=== PATIENT | male | born 1970 | race Caucasian/White ===

== ENCOUNTER 2021-05-21 00:20 | Inpatient (IN) | payer MEDICAID, OTHER ==
[~2021-05-21] VITALS: Ht 180.3 cm; Wt 109.1 kg
[~2021-05-21 00:20] MED LIST: CLIN150C8 PO; HYDR-4383 PO
[2021-05-21] MEDS ORDERED: acetaminophen 325mg tablet PO STA (01:44)
[2021-05-21 02:13] LABS: BASOPHILS # (AUTO) 0.1 X10'3 (0-0.2); BASOPHILS % (AUTO) 0.3 % (0-1); EOSINOPHILS # (AUTO) 0.1 X10'3 (0-0.9); EOSINOPHILS % (AUTO) 0.6 % (0-6); HEMATOCRIT 39.5 % (42.0-52.0); HEMOGLOBIN 12.9 g/dl (14.0-17.9); LYMPHOCYTES # (AUTO) 2.2 X10'3 (1.1-4.8); MEAN CORPUSCULAR HEMOGLOBIN 29.3 PG (27.0-31.0); MEAN CORPUSCULAR HGB CONC 32.8 g/dL (33.0-36.5); MEAN CORPUSCULAR VOLUME 89.5 FL (78-98); MONOCYTES # (AUTO) 1.7 X10'3 (0-0.9); MONOCYTES % (AUTO) 6.7 % (2-12); NEUTROPHILS # (AUTO) 20.6 X10'3 (1.8-7.7); NEUTROPHILS % (AUTO) 83.4 % (42-75); PLATELET COUNT 361 X10'3 (140-440); RED BLOOD COUNT 4.42 X10'6 (4.70-6.10); RED CELL DISTRIBUTION WIDTH 15.6 % (11.5-14.5); WHITE BLOOD COUNT 24.8 X10'3 (4.5-11.0)
[2021-05-21] MEDS ORDERED: VANCOMYCIN 1,500MG inj. 1,500 MG in normal saline 500ml IV soln 300 ML IV ONE (02:34)
[2021-05-21] MEDS ORDERED: CefTRIAXone/D5W-Rocephin 1gm 50 ML IV ONE (02:35)
[2021-05-21] MEDS ORDERED: NO HOME MEDS (02:42)
[2021-05-21 02:59] LABS: ALANINE AMINOTRANSFERASE 29 U/L (12-78); ALBUMIN 3.1 G/DL (3.4-5.0); ALBUMIN/GLOBULIN RATIO 0.8 (1.1-1.5); ALKALINE PHOSPHATASE 75 IU/L (46-116); ANION GAP 7 (8-16); ASPARTATE AMINO TRANSFERASE 19 U/L (10-37); BILIRUBIN,TOTAL 0.8 MG/DL (0.1-1.0); BLOOD UREA NITROGEN 16 MG/DL (7-18); BUN/CREATININE RATIO 9.5 (5.4-32.0); CALCIUM 8.3 MG/DL (8.5-10.1); CHLORIDE 103 MMOL/L (99-107); CREATININE 1.69 MG/DL (0.60-1.10); GLUCOSE 139 MG/DL (70-104); POTASSIUM 3.8 MMOL/L (3.5-5.1); SODIUM 140 MMOL/L (135-145); TOTAL CARBON DIOXIDE 30.1 MMOL/L (24-32); TOTAL PROTEIN 6.9 G/DL (6.4-8.2); eGFR 43 ML/MIN
[2021-05-21] MEDS ORDERED: acetaminophen 325mg tablet PO PRN (03:15)
[2021-05-21] MEDS ORDERED: magnesium hydroxide 30ml (MOM) UD suspension PO PRN (03:15)
[2021-05-21] MEDS ORDERED: ondansetron/PF 4mg/2ml inj IV PRN (03:15)
[2021-05-21] MEDS ORDERED: mag hydrox/Alum hydrox/simeth 30ml oral suspension PO PRN (03:15)
[2021-05-21] MEDS ORDERED: insulin Lispro (HumaLOG) vial - multi-dose SQ SCH (03:20)
[2021-05-21] MEDS ORDERED: dextrose ORAL solution 15 GM/59 ML bottle PO PRN ×2 (03:20)
[2021-05-21] MEDS ORDERED: dextrose 50%-water 50ml dispensing syringe IV PRN ×2 (03:20)
[2021-05-21] MEDS ORDERED: MESSAGE TO PHARMACY PO ONE (03:20)
[2021-05-21] MEDS ORDERED: glucagon, human recombinant 1mg kit SUBCUT PRN (03:20)
[2021-05-21 03:24] LABS: PLATELET ESTIMATE NORMAL; TOTAL CELLS COUNTED 100
[2021-05-21 03:45] VITALS: BP 136/69
[2021-05-21 06:00] VITALS: BP 136/69
--- NOTE | 2021-05-21 06:00 | NUR ---
Patient in room [facility]TH[facility] 4017. I have received report from Sandra ARIAS and had the opportunity to ask questions and assume patient care.
--- NOTE | 2021-05-21 06:19 | NUR ---
RC'D VERBAL REPORT FROM "CAP" IN ED AND ASSUMED CARE OF PATIENT AT 0345. RLE CELLULITIS DRAINING SEROUS DRNG. PICTURES TAKEN AND IN THE CHART. REPORT TO EARLY SHIFT JUANA HANEY
[2021-05-21] MEDS: heparin, porcine 5000 units/ml vial SQ SCH ×2 (08:00→20:01)
[2021-05-21] MEDS: normal saline 1000ml 1,000 ML IV SCH (08:14)
[2021-05-21] MEDS: piperacillin/tazo 3.375gm/50ml 50 ML IV SCH ×3 (08:16→23:17)
[2021-05-21 11:00] VITALS: BP 106/64
[2021-05-21] MEDS: vancomycin/NS 1 GM ADD-VANTAGE 250 ML IV SCH (13:02)
[2021-05-21] MEDS ORDERED: hydrALAZINE 20mg/ml inj. IV PRN (15:15)
[2021-05-21] MEDS: HYDROcodone/acetaminophen 5mg/325mg tablet PO PRN (16:10)
[2021-05-21 17:00] VITALS: BP 132/68
--- NOTE | 2021-05-21 18:31 | NUR ---
Problems reprioritized. Patient report given, questions answered & plan of care reviewed with Loreto ARIAS.
--- NOTE | 2021-05-21 18:35 | NUR ---
Patient in room [facility]TH[facility] 4017. I have received report from kenneth Johnson and had the opportunity to ask questions and assume patient care.
[2021-05-21] MEDS: lactobacillus rhamnosus 10,000 MMU CELLS/CAPSULE PO SCH (20:00)
[2021-05-21 22:00] VITALS: BP 131/76
[2021-05-22] MEDS: vancomycin/NS 1 GM ADD-VANTAGE 250 ML IV SCH ×3 (03:35→21:06)
[2021-05-22] MEDS: HYDROcodone/acetaminophen 5mg/325mg tablet PO PRN ×3 (05:22→21:06)
[2021-05-22 06:00] VITALS: BP 138/75
--- NOTE | 2021-05-22 06:41 | NUR ---
Problems reprioritized. Patient report given, questions answered & plan of care reviewed with JUANA COLLINS.
--- NOTE | 2021-05-22 06:45 | NUR ---
Patient in room [facility]TH[facility] 4017. I have received report from JUANA RENEE and had the opportunity to ask questions and assume patient care.
[2021-05-22 06:48] LABS: BASOPHILS % (AUTO) 0.2 % (0-1); EOSINOPHILS # (AUTO) 0.1 X10'3 (0-0.9); EOSINOPHILS % (AUTO) 0.7 % (0-6); HEMATOCRIT 38.3 % (42.0-52.0); HEMOGLOBIN 12.7 g/dl (14.0-17.9); LYMPHOCYTES # (AUTO) 2.3 X10'3 (1.1-4.8); LYMPHOCYTES % (AUTO) 12.4 % (21-51); MEAN CORPUSCULAR HEMOGLOBIN 29.3 PG (27.0-31.0); MEAN CORPUSCULAR HGB CONC 33.1 g/dL (33.0-36.5); MEAN CORPUSCULAR VOLUME 88.5 FL (78-98); MEAN PLATELET VOLUME 7.1 FL (7.4-10.4); MONOCYTES # (AUTO) 1.9 X10'3 (0-0.9); MONOCYTES % (AUTO) 10.4 % (2-12); NEUTROPHILS % (AUTO) 76.3 % (42-75); PLATELET COUNT 350 X10'3 (140-440); RED BLOOD COUNT 4.33 X10'6 (4.70-6.10); RED CELL DISTRIBUTION WIDTH 15.7 % (11.5-14.5); WHITE BLOOD COUNT 18.4 X10'3 (4.5-11.0)
[2021-05-22 07:18] LABS: ALANINE AMINOTRANSFERASE 47 U/L (12-78); ALBUMIN 2.4 G/DL (3.4-5.0); ALBUMIN/GLOBULIN RATIO 0.5 (1.1-1.5); ALKALINE PHOSPHATASE 71 IU/L (46-116); ANION GAP 9 (8-16); ASPARTATE AMINO TRANSFERASE 23 U/L (10-37); BILIRUBIN,TOTAL 0.9 MG/DL (0.1-1.0); BLOOD UREA NITROGEN 15 MG/DL (7-18); CALCIUM 7.8 MG/DL (8.5-10.1); CHLORIDE 102 MMOL/L (99-107); CREATININE 1.25 MG/DL (0.60-1.10); GLUCOSE 100 MG/DL (70-104); POTASSIUM 3.9 MMOL/L (3.5-5.1); SODIUM 136 MMOL/L (135-145); TOTAL CARBON DIOXIDE 24.6 MMOL/L (24-32); TOTAL PROTEIN 6.9 G/DL (6.4-8.2); eGFR 61 ML/MIN
[2021-05-22] MEDS: heparin, porcine 5000 units/ml vial SQ SCH ×2 (08:00→21:07)
[2021-05-22] MEDS: lactobacillus rhamnosus 10,000 MMU CELLS/CAPSULE PO SCH ×2 (08:54→21:07)
[2021-05-22] MEDS: piperacillin/tazo 3.375gm/50ml 50 ML IV SCH ×2 (08:59→17:27)
[2021-05-22 10:00] VITALS: BP 139/79
[2021-05-22] MEDS ORDERED: VANCOMYCIN LEVEL IV ONE (13:30)
[2021-05-22 18:00] VITALS: BP 119/71
--- NOTE | 2021-05-22 18:02 | NUR ---
Problems reprioritized. Patient report given, questions answered & plan of care reviewed with JUANA RENEE.
[2021-05-22 22:00] VITALS: BP 137/76
--- NOTE | 2021-05-22 23:28 | NUR ---
Patient in room [facility]TH[facility] 4017. I have received report from JUANA COLLINS and had the opportunity to ask questions and assume patient care. Addendum: 05/22/21 at 4828 by Loreto Santoro RN RECEIVED REPORT AT 0831.
[2021-05-23] MEDS: piperacillin/tazo 3.375gm/50ml 50 ML IV SCH ×4 (00:07→23:17)
[2021-05-23] MEDS: normal saline 1000ml 1,000 ML IV SCH (03:15)
[2021-05-23] MEDS: vancomycin/NS 1 GM ADD-VANTAGE 250 ML IV SCH ×2 (05:27→13:27)
[2021-05-23] MEDS: HYDROcodone/acetaminophen 5mg/325mg tablet PO PRN (05:43)
[2021-05-23 06:00] VITALS: BP 144/83
--- NOTE | 2021-05-23 06:34 | NUR ---
Problems reprioritized. Patient report given, questions answered & plan of care reviewed with JUANA COLLINS.
--- NOTE | 2021-05-23 06:42 | NUR ---
Patient in room [facility]TH[facility] 4017. I have received report from JUANA RENEE and had the opportunity to ask questions and assume patient care.
[2021-05-23 07:12] LABS: BASOPHILS % (AUTO) 0.2 % (0-1); EOSINOPHILS # (AUTO) 0.2 X10'3 (0-0.9); EOSINOPHILS % (AUTO) 1.2 % (0-6); HEMOGLOBIN 12.7 g/dl (14.0-17.9); LYMPHOCYTES # (AUTO) 1.9 X10'3 (1.1-4.8); LYMPHOCYTES % (AUTO) 11.7 % (21-51); MEAN CORPUSCULAR HEMOGLOBIN 29.4 PG (27.0-31.0); MEAN CORPUSCULAR HGB CONC 33.4 g/dL (33.0-36.5); MEAN PLATELET VOLUME 7.3 FL (7.4-10.4); MONOCYTES # (AUTO) 1.6 X10'3 (0-0.9); MONOCYTES % (AUTO) 9.8 % (2-12); NEUTROPHILS # (AUTO) 12.7 X10'3 (1.8-7.7); NEUTROPHILS % (AUTO) 77.1 % (42-75); PLATELET COUNT 390 X10'3 (140-440); RED BLOOD COUNT 4.32 X10'6 (4.70-6.10); RED CELL DISTRIBUTION WIDTH 15.1 % (11.5-14.5); WHITE BLOOD COUNT 16.5 X10'3 (4.5-11.0)
[2021-05-23 07:28] LABS: ALANINE AMINOTRANSFERASE 39 U/L (12-78); ALBUMIN 2.3 G/DL (3.4-5.0); ALBUMIN/GLOBULIN RATIO 0.5 (1.1-1.5); ALKALINE PHOSPHATASE 76 IU/L (46-116); ANION GAP 12 (8-16); ASPARTATE AMINO TRANSFERASE 26 U/L (10-37); BILIRUBIN,TOTAL 0.9 MG/DL (0.1-1.0); BLOOD UREA NITROGEN 18 MG/DL (7-18); BUN/CREATININE RATIO 14.1 (5.4-32.0); CHLORIDE 101 MMOL/L (99-107); CREATININE 1.28 MG/DL (0.60-1.10); GLUCOSE 105 MG/DL (70-104); POTASSIUM 3.8 MMOL/L (3.5-5.1); SODIUM 138 MMOL/L (135-145); TOTAL CARBON DIOXIDE 25.3 MMOL/L (24-32); TOTAL PROTEIN 6.7 G/DL (6.4-8.2); eGFR 59 ML/MIN
[2021-05-23] MEDS: lactobacillus rhamnosus 10,000 MMU CELLS/CAPSULE PO SCH ×2 (07:51→20:16)
[2021-05-23] MEDS: heparin, porcine 5000 units/ml vial SQ SCH ×2 (08:00→20:16)
[2021-05-23 10:00] VITALS: BP 121/63
[2021-05-23] MEDS ORDERED: VANCOMYCIN LEVEL IV ONE (12:30)
[2021-05-23 18:00] VITALS: BP 111/64
--- NOTE | 2021-05-23 18:28 | NUR ---
Problems reprioritized. Patient report given, questions answered & plan of care reviewed with JUANA RENEE.
[2021-05-23] MEDS: VANCOmycin 1250MG/NS 250ml Bag 250 ML IV SCH (20:23)
[2021-05-23 22:00] VITALS: BP 115/72
[2021-05-24] MEDS: VANCOmycin 1250MG/NS 250ml Bag 250 ML IV SCH (04:40)
[2021-05-24 06:00] VITALS: BP 111/64
--- NOTE | 2021-05-24 06:01 | NUR ---
Problems reprioritized. Patient report given, questions answered & plan of care reviewed with JUANA COLLINS.
--- NOTE | 2021-05-24 06:03 | NUR ---
Problems reprioritized. Patient report given, questions answered & plan of care reviewed with JAUNA COLLINS.
--- NOTE | 2021-05-24 06:12 | NUR ---
Patient in room [facility]TH[facility] 4017. I have received report from JUANA RENEE and had the opportunity to ask questions and assume patient care.
[2021-05-24 06:31] LABS: BASOPHILS # (AUTO) 0.1 X10'3 (0-0.2); BASOPHILS % (AUTO) 0.4 % (0-1); EOSINOPHILS # (AUTO) 0.3 X10'3 (0-0.9); EOSINOPHILS % (AUTO) 2.3 % (0-6); HEMATOCRIT 36.2 % (42.0-52.0); HEMOGLOBIN 11.9 g/dl (14.0-17.9); LYMPHOCYTES # (AUTO) 1.8 X10'3 (1.1-4.8); LYMPHOCYTES % (AUTO) 12.7 % (21-51); MEAN CORPUSCULAR HGB CONC 32.8 g/dL (33.0-36.5); MEAN CORPUSCULAR VOLUME 88.5 FL (78-98); MEAN PLATELET VOLUME 7.1 FL (7.4-10.4); MONOCYTES # (AUTO) 1.3 X10'3 (0-0.9); MONOCYTES % (AUTO) 8.8 % (2-12); NEUTROPHILS # (AUTO) 10.8 X10'3 (1.8-7.7); NEUTROPHILS % (AUTO) 75.8 % (42-75); PLATELET COUNT 383 X10'3 (140-440); RED BLOOD COUNT 4.09 X10'6 (4.70-6.10); RED CELL DISTRIBUTION WIDTH 15.3 % (11.5-14.5); WHITE BLOOD COUNT 14.3 X10'3 (4.5-11.0)
--- NOTE | 2021-05-24 06:34 | NUR ---
Problems reprioritized. Patient report given, questions answered & plan of care reviewed with JUANA COLLINS.
[2021-05-24 06:51] LABS: ALANINE AMINOTRANSFERASE 64 U/L (12-78); ALBUMIN 2.3 G/DL (3.4-5.0); ALBUMIN/GLOBULIN RATIO 0.5 (1.1-1.5); ALKALINE PHOSPHATASE 77 IU/L (46-116); ASPARTATE AMINO TRANSFERASE 40 U/L (10-37); BILIRUBIN,TOTAL 0.8 MG/DL (0.1-1.0); BLOOD UREA NITROGEN 15 MG/DL (7-18); BUN/CREATININE RATIO 12.4 (5.4-32.0); CALCIUM 7.9 MG/DL (8.5-10.1); CREATININE 1.21 MG/DL (0.60-1.10); GLUCOSE 137 MG/DL (70-104); TOTAL PROTEIN 6.8 G/DL (6.4-8.2); eGFR 63 ML/MIN
[2021-05-24 07:05] LABS: ANION GAP 12 (8-16); CHLORIDE 101 MMOL/L (99-107); POTASSIUM 3.6 MMOL/L (3.5-5.1); SODIUM 138 MMOL/L (135-145)
[2021-05-24] MEDS: piperacillin/tazo 3.375gm/50ml 50 ML IV SCH (07:09)
[2021-05-24] MEDS: lactobacillus rhamnosus 10,000 MMU CELLS/CAPSULE PO SCH (07:09)
[2021-05-24] MEDS: heparin, porcine 5000 units/ml vial SQ SCH (08:00)
[2021-05-24] MEDS ORDERED: CLIN-91 PO (08:43)
[2021-05-24 10:00] VITALS: BP 128/75
--- NOTE | 2021-05-24 11:42 | NUR ---
pt d/c with instructions, understanding of instructions and w/all belongings in wheelchair accompanied by significant other to private vehicle to go home and f/u w/pcp
[2021-05-24] MEDS ORDERED: VANCOMYCIN LEVEL IV ONE (20:30)
== END 2021-05-24 11:30 | disposition home or self-care (01) | DRG 720 ==
LOC: ER 00:21 → ED HOLD 03:12 → ORTHO 4S 03:37
PROVIDERS: ADMIT Internal Medicine; ATTEND Family Medicine
DX: A41.9 Sepsis, unspecified organism (principal); N17.0 Acute kidney failure with tubular necrosis; L03.115 Cellulitis of right lower limb; F17.200 Nicotine dependence, unspecified, uncomplicated; S80.822A Blister (nonthermal), left lower leg, initial encounter; I87.8 Other specified disorders of veins; I10 Essential (primary) hypertension; L03.116 Cellulitis of left lower limb; Z80.1 Family history of malignant neoplasm of trachea, bronchus and lung; Z86.14 Personal history of Methicillin resistant Staphylococcus aureus infection; W55.03XA Scratched by cat, initial encounter; Y93.89 Activity, other specified; Y92.89 Other specified places as the place of occurrence of the external cause; Y99.8 Other external cause status
CPT/HCPCS: 36415; 73700; 80053; 80202; 82948; 83036; 83605; 83735; 84145; 85007; 85025; 87040; 87081; 93005; 99285; G0378; J0696; J1644; J1815; J2543; J3370; J7030; J7040